=== PATIENT | female | born 1955 | race Caucasian/White ===

== ENCOUNTER 2016-07-02 14:55 | Emergency (ER) | payer BC ==
[~2016-07-02] VITALS: Ht 157.5 cm; Wt 63.6 kg
[~2016-07-02 14:55] MED LIST: ALPARAZOLAM0.5 MG PO; COUMADIN2.5 MG PO; DURAGESIC100 MCG/HR TD; ESTRODIAL; ESTRODIAL PO; FENTANYL 100MCG TD; FENTANYL 50MCG TP; FENTANYL 75MCG TD; LAMICTAL 100MG100 MG PO; LAMOTRIGINE5 MG PO; LASIX20 MG PO; LEVOTHYROXIN0.088 MG PO; LEVOTHYROXINE0.1 MG PO; LEVOXYL0.075 MG PO; LEVOXYL0.088 MG PO; LITHIUM CARBON150 MG PO; LORTAB 5/500 501 TAB PO; MOTRIN 400400 MG/TAB PO; MS CONTIN100 MG PO; MSIR30 MG PO; NORCO 325 MG-51 TAB PO; PEPCID 20MG TAB20 MG PO; PREDNISONE20 MG PO; PROPRANOLOL10 MG PO; REGLAN 10MG10 MG/TAB PO; RITALIN 5MG5 MG/TAB PO; SEROQUEL 2525 MG/TAB PO; SOMA 350MG350 MG/TAB PO; UROCIT; VALIUM 5MG T5 MG/TAB PO; XANAX 1MG1 MG PO; ZITHROMAX 250M250 MG PO; ZOFRAN 4MG T4 MG/TAB PO
[2016-07-02 14:58] VITALS: TEMP 99.8
[2016-07-02] MEDS ORDERED: MS CONTIN 660 MG/TAB PO (15:20)
[2016-07-02] MEDS ORDERED: LEVOXYL0.075 MG PO (15:21)
[2016-07-02] MEDS ORDERED: NORCO 325 MG-51 TAB PO (15:22)
[2016-07-02] MEDS ORDERED: AMITRIPTYLINE H25 M1 PO (15:22)
[2016-07-02] MEDS ORDERED: VALIUM 5MG T5 MG/TAB PO (15:23)
[2016-07-02 15:48] LABS: BASO # 0.1 (0.0-0.2); BASO % 0.3 % (0.0-2.0); EOS # 0.1 (0.0-0.7); EOS % 0.9 % (0-4.0); GRAN # 11.6 (1.4-6.5); GRAN % 80.2 % (42.2-75.2); HEMATOCRIT 42.4 % (37.0-47.0); HEMOGLOBIN 13.4 g/dl (12.5-16.0); LYMPH # 1.5 (1.2-3.4); LYMPH % 10.6 % (20.0-51.0); MEAN CELL VOLUME 92 fl (80.0-100.0); MEAN CORPUSCULAR HEMOGLOBIN 29 pg (27.0-31.0); MEAN CORPUSCULAR HGB CONC 32 g/dl (33.0-37.0); MEAN PLATELET VOLUME 10.2 fl (7.4-10.4); MONO # 1.1 (0.1-0.6); MONO % 7.7 % (1.7-9.3); PLATELET COUNT 363 K/mm3 (130-400); RED BLOOD COUNT 4.62 M/mm3 (4.10-5.30); REDCELL DISTRIBUTION WIDTH-CV 13.6 % (11.5-14.5); WHITE BLOOD COUNT 14.4 K/mm3 (4.8-10.8)
[2016-07-02 15:57] LABS: ADJUSTED CALCIUM 9.8 mg/dL (8.4-10.2); BILIRUBIN,TOTAL 0.6 mg/dL (0.0-1.0); CALCIUM 9.8 mg/dL (8.4-10.2); CREATININE, serum 0.88 mg/dL (0.52-1.25); POTASSIUM 3.6 mmol/L (3.4-5.0); TOTAL PROTEIN 7.3 gm/dL (6.4-8.2)
[2016-07-02 16:12] LABS: PH 5 (5-8); SQUAMOUS EPITHELIAL 0-2 /hpf; URINE APPEARANCE Clear; URINE BACTERIA None Seen /hpf; URINE BILIRUBIN Negative (NEGATIVE); URINE BLOOD Negative (NEGATIVE); URINE COLOR Yellow; URINE GLUCOSE 1+ (NEGATIVE); URINE KETONE Negative (NEGATIVE); URINE RBC 0-2 /hpf; URINE UROBILINOGEN Negative (NEGATIVE); URINE WBC 0-2 /hpf
[2016-07-02 16:25] LABS: AMPHETAMINE URINE NEGATIVE; BARBITURATES URINE NEGATIVE; BENZODIAZEPINES URINE POSITIVE; BUPRENORPHINE URINE NEGATIVE; METHADONE URINE NEGATIVE; OPIATES URINE POSITIVE; OXYCODONE URINE NEGATIVE; PHENCYCLIDINE URINE NEGATIVE; PROPOXYPHENE URINE NEGATIVE; THC CANNABINOIDS URINE NEGATIVE
[2016-07-02 18:08] VITALS: BP 110/61; PULSE 88
== END 2016-07-02 18:35 | disposition home or self-care (01) ==
LOC: COL.ER 14:55
PROVIDERS: Emergency Medicine
DX: T40.2X1A Poisoning by other opioids, accidental (unintentional), initial encounter (principal); T39.1X1A Poisoning by 4-Aminophenol derivatives, accidental (unintentional), initial encounter; T42.8X1A Poisoning by antiparkinsonism drugs and other central muscle-tone depressants, accidental (unintentional), initial encounter; T42.4X1A Poisoning by benzodiazepines, accidental (unintentional), initial encounter; T43.011A Poisoning by tricyclic antidepressants, accidental (unintentional), initial encounter; F11.129 Opioid abuse with intoxication, unspecified; Y92.009 Unspecified place in unspecified non-institutional (private) residence as the place of occurrence of the external cause; G89.29 Other chronic pain; G14 Postpolio syndrome; F41.9 Anxiety disorder, unspecified; F32.9 Major depressive disorder, single episode, unspecified
CPT/HCPCS: J2310; J2550; J2765; J7030

== ENCOUNTER → 2016-10-11 | Outpatient (CLI) | payer BC ==
[~2016-10-11] MED LIST changes: +AMITRIPTYLINE H25 M1 PO; +MS CONTIN 660 MG/TAB PO
== END ==
LOC: BHSO 14:43
DX: F41.1 Generalized anxiety disorder (principal)

== ENCOUNTER → 2017-04-04 | Outpatient (CLI) | payer BC | LOC: MC.RAD 11:17 | DX: Z12.31 Encounter for screening mammogram for malignant neoplasm of breast (principal); Z98.890 Other specified postprocedural states ==

== ENCOUNTER → 2017-09-20 | Outpatient (CLI) | payer BC ==
[~2017-09-20] MED LIST changes: +OXYCONTIN30 MG PO
== END ==
LOC: BHSO 13:42
DX: F06.32 Mood disorder due to known physiological condition with major depressive-like episode (principal)
CPT/HCPCS: G0463

== ENCOUNTER → 2017-10-31 | Outpatient (CLI) | payer BC | LOC: MHCPAIN 13:15 | DX: G89.29 Other chronic pain (principal); M79.2 Neuralgia and neuritis, unspecified; M79.1 Myalgia | CPT/HCPCS: G0463 ==

== ENCOUNTER → 2017-12-15 | Outpatient (CLI) | payer BC | LOC: COL.VAS 13:42 | DX: M79.604 Pain in right leg (principal); M79.89 Other specified soft tissue disorders; R60.0 Localized edema; Z98.890 Other specified postprocedural states ==

== ENCOUNTER 2018-01-30 13:30 | Outpatient (RCR) | payer BC ==
[~2018-01-30 13:30] MED LIST changes: +OXYCONTIN 10MG10 MG PO; -OXYCONTIN30 MG PO
[2018-03-02] MEDS ORDERED: PRILOSEC 20MG20 MG PO (11:33)
[2018-03-02] MEDS ORDERED: VITAMIN D31000 I1 PO (11:34)
== END 2018-03-02 12:28 | disposition home or self-care (01) ==
LOC: WSC 13:30
DX: G14 Postpolio syndrome (principal); M79.2 Neuralgia and neuritis, unspecified; G89.29 Other chronic pain; R26.81 Unsteadiness on feet

== ENCOUNTER → 2018-02-20 | Outpatient (CLI) | payer BC ==
[~2018-02-20] MED LIST changes: -OXYCONTIN 10MG10 MG PO; +OXYCONTIN30 MG PO
== END ==
LOC: COL.PUL 11:05
DX: R06.02 Shortness of breath (principal)

== ENCOUNTER 2018-03-02 10:37 | Day surgery (SDC) | payer BC ==
[~2018-03-02] VITALS: Ht 160 cm; Wt 80.5 kg
[~2018-03-02 10:37] MED LIST changes: +OXYCONTIN 10MG10 MG PO; -OXYCONTIN30 MG PO
[2018-03-02] MEDS ORDERED: PRILOSEC 20MG20 MG PO (11:33)
[2018-03-02] MEDS ORDERED: VITAMIN D31000 I1 PO (11:34)
[2018-03-02 11:44] VITALS: BP 136/86; PULSE 75; TEMP 97.4
[2018-03-02 14:20] VITALS: BP 133/82; PULSE 65; TEMP 98.1
[2018-03-02 14:30] VITALS: BP 125/73; PULSE 62
[2018-03-02 14:45] VITALS: BP 137/89; PULSE 76
== END 2018-03-02 15:03 | disposition home or self-care (01) ==
LOC: SDCO 10:37
DX: K22.2 Esophageal obstruction (principal); K21.9 Gastro-esophageal reflux disease without esophagitis; G89.29 Other chronic pain; F41.9 Anxiety disorder, unspecified; F32.9 Major depressive disorder, single episode, unspecified; M79.7 Fibromyalgia; M19.90 Unspecified osteoarthritis, unspecified site; M94.0 Chondrocostal junction syndrome [Tietze]; E78.00 Pure hypercholesterolemia, unspecified; K58.9 Irritable bowel syndrome, unspecified; Z96.641 Presence of right artificial hip joint; Z90.710 Acquired absence of both cervix and uterus; Z88.1 Allergy status to other antibiotic agents; Z88.8 Allergy status to other drugs, medicaments and biological substances; Z88.7 Allergy status to serum and vaccine; Z85.3 Personal history of malignant neoplasm of breast
CPT/HCPCS: C1726; J2704; J3010; J7030

== ENCOUNTER → 2018-03-09 | Outpatient (CLI) | payer BC ==
[~2018-03-09] MED LIST changes: +PRILOSEC 20MG20 MG PO; +VITAMIN D31000 I1 PO
== END ==
LOC: BHSO 14:54
DX: F41.1 Generalized anxiety disorder (principal)
CPT/HCPCS: G0463

== ENCOUNTER → 2018-04-04 | Outpatient (CLI) | payer BC | LOC: COL.RAD 03-22 13:00 | DX: J98.6 Disorders of diaphragm (principal); R06.02 Shortness of breath; Z86.12 Personal history of poliomyelitis ==

== ENCOUNTER → 2018-04-25 | Outpatient (CLI) | payer BC ==
[~2018-04-25] VITALS: Ht 158.8 cm; Wt 80.1 kg
[~2018-04-25] MED LIST changes: +ADVIL200 MG PO; +FETZIMA20 PO; +TYLENOL 8 HR PO
[2018-04-25 09:22] VITALS: BP 140/90; PULSE 104
== END ==
LOC: LIGHT 03-21 16:30
DX: R73.01 Impaired fasting glucose (principal); E78.5 Hyperlipidemia, unspecified; E03.9 Hypothyroidism, unspecified; E66.9 Obesity, unspecified; Z68.31 Body mass index [BMI] 31.0-31.9, adult; Z71.3 Dietary counseling and surveillance
CPT/HCPCS: G0463

== ENCOUNTER 2018-05-05 09:27 | Emergency (ER) | payer BC ==
[~2018-05-05] VITALS: Ht 160 cm; Wt 79.5 kg
[2018-05-05 09:32] VITALS: TEMP 97.9
[2018-05-05 10:27] LABS: BASO % 0.2 % (0.0-2.0); GRAN # 14.2 (1.4-6.5); HEMATOCRIT 41.2 % (37.0-47.0); HEMOGLOBIN 13.9 g/dl (12.5-16.0); LYMPH # 1.8 (1.2-3.4); LYMPH % 10.3 % (20.0-51.0); MEAN CELL VOLUME 85 fl (80.0-100.0); MEAN CORPUSCULAR HEMOGLOBIN 29 pg (27.0-31.0); MEAN CORPUSCULAR HGB CONC 34 g/dl (33.0-37.0); MEAN PLATELET VOLUME 9.6 fl (7.4-10.4); MONO % 5.6 % (1.7-9.3); PLATELET COUNT 422 K/mm3 (130-400); RED BLOOD COUNT 4.84 M/mm3 (4.10-5.30); REDCELL DISTRIBUTION WIDTH-CV 14.3 % (11.5-14.5)
[2018-05-05 10:37] LABS: ALBUMIN 4.5 gm/dL (3.5-5.0); BILIRUBIN,TOTAL 0.4 mg/dL (0.0-1.0); CALCIUM 10.6 mg/dL (8.4-10.2); CREATININE, serum 0.83 mg/dL (0.52-1.25); POTASSIUM 3.8 mmol/L (3.4-5.0); TOTAL PROTEIN 7.9 gm/dL (6.4-8.2)
[2018-05-05] MEDS ORDERED: NORCO 325 MG-51 TAB PO (11:57)
[2018-05-05] MEDS ORDERED: CLEOCIN HCL300 MG PO (11:57)
[2018-05-05 12:16] VITALS: BP 168/97; PULSE 98
== END 2018-05-05 12:25 | disposition home or self-care (01) ==
LOC: COL.ER 09:27
PROVIDERS: Nurse Practitioner Primary Care
DX: M27.2 Inflammatory conditions of jaws (principal); F41.9 Anxiety disorder, unspecified; E03.9 Hypothyroidism, unspecified; K21.9 Gastro-esophageal reflux disease without esophagitis; G14 Postpolio syndrome; Z79.899 Other long term (current) drug therapy; Z86.718 Personal history of other venous thrombosis and embolism
CPT/HCPCS: J1100; J2270; J2405; Q9967

== ENCOUNTER → 2018-05-31 | Outpatient (CLI) | payer BC ==
[~2018-05-31] MED LIST changes: +CLEOCIN HCL300 MG PO
== END ==
LOC: LIGHT 13:52
DX: R73.01 Impaired fasting glucose (principal); E78.5 Hyperlipidemia, unspecified; E03.9 Hypothyroidism, unspecified; E66.9 Obesity, unspecified; Z68.31 Body mass index [BMI] 31.0-31.9, adult; Z71.3 Dietary counseling and surveillance

== ENCOUNTER → 2018-06-28 | Outpatient (CLI) | payer BC ==
[~2018-06-28] VITALS: Ht 160 cm; Wt 79.8 kg
[~2018-06-28] MED LIST changes: +NUEDEXTA 20 MG-1 CAP PO
[2018-06-28 15:01] VITALS: BP 126/72; PULSE 84
== END ==
LOC: LIGHT
DX: E78.5 Hyperlipidemia, unspecified (principal); R73.01 Impaired fasting glucose; E03.9 Hypothyroidism, unspecified; E66.9 Obesity, unspecified; Z68.31 Body mass index [BMI] 31.0-31.9, adult; Z71.3 Dietary counseling and surveillance
CPT/HCPCS: G0463

== ENCOUNTER → 2018-07-11 | Outpatient (CLI) | payer BC ==
[~2018-07-11] MED LIST changes: +NORCO 325 MG-7.1 TAB PO; +SYNTHROID0.088 MG/T PO
== END ==
LOC: COL.RAD 07-03 13:15
DX: G93.89 Other specified disorders of brain (principal); M54.2 Cervicalgia; H74.8X3 Other specified disorders of middle ear and mastoid, bilateral

== ENCOUNTER → 2018-07-17 | Outpatient (CLI) | payer BC ==
[~2018-07-17] MED LIST changes: -NORCO 325 MG-7.1 TAB PO; -SYNTHROID0.088 MG/T PO
== END ==
LOC: COL.RAD 13:15
DX: M50.31 Other cervical disc degeneration, high cervical region (principal)
CPT/HCPCS: A9585

== ENCOUNTER → 2018-07-24 | Outpatient (CLI) | payer BC ==
[~2018-07-24] VITALS: Ht 160 cm; Wt 79.6 kg
[~2018-07-24] MED LIST changes: +NORCO 325 MG-7.1 TAB PO; +SYNTHROID0.088 MG/T PO
== END ==
LOC: LIGHT 09:48
DX: E78.5 Hyperlipidemia, unspecified (principal); R73.01 Impaired fasting glucose; E03.9 Hypothyroidism, unspecified; E66.9 Obesity, unspecified; Z68.31 Body mass index [BMI] 31.0-31.9, adult; Z71.3 Dietary counseling and surveillance

== ENCOUNTER → 2018-07-26 | Day surgery (SDC) | payer BC ==
[~2018-07-26] VITALS: Ht 160 cm; Wt 81.9 kg
[~2018-07-26] MED LIST changes: +VITAMIN D32000 IU PO
[2018-07-26 07:32] VITALS: BP 116/61; PULSE 92; TEMP 98.7
--- NOTE | 2018-07-26 08:10 | NUR ---
PATIENT STARTED CRYING AND MOANING DURING IV STICK- 2 UNSUCESSFUL STICKS. IV SERVICES CALLED
[2018-07-26 12:55] VITALS: BP 95/56; PULSE 100; TEMP 98.8
--- NOTE | 2018-07-26 12:55 | NUR ---
TO RM 8 PER CART FROM PACU. ALERT ORIENTED X3, TALKING TO STAFF AND FAMILY. RIGHT LEG ELEVATED, ICE OVER KNEE. DENIES PAIN OR DISCOMFORT. DENIES NAUSEA OR VOMITING. RECEIVED CRANBERRY JUICE AND CRACKERS
[2018-07-26 13:10] VITALS: BP 108/67; PULSE 90
--- NOTE | 2018-07-26 13:10 | NUR ---
ATE 100% AND RECEIVED JELLO.
[2018-07-26 13:25] VITALS: BP 110/63; PULSE 96
--- NOTE | 2018-07-26 13:25 | NUR ---
ATE 100% AND TOLERATED WELL. ASKING TO GO HOME.
--- NOTE | 2018-07-26 13:35 | NUR ---
UP AMBULATED TO BATHROOM WITH WALKER. VOIDED AND TOLERATED WELL.
--- NOTE | 2018-07-26 13:50 | NUR ---
RECEIVED DISCHARGE INSTRUCTIONS AND VERBALIZED UNDERSTANDING. STUDENT DISCONTINUED IV AND INT- CATHETER INTACT COVERED WITH COTTON BALL AND COBAN
--- NOTE | 2018-07-26 14:00 | NUR ---
DISCHARGED PER WC BY NURSING STAFF TO PRIVATE CAR IN CARE OF AND MOTHER.
== END ==
LOC: SDCO 06:57
DX: S83.231A Complex tear of medial meniscus, current injury, right knee, initial encounter (principal); Z79.82 Long term (current) use of aspirin; Z88.8 Allergy status to other drugs, medicaments and biological substances; F41.9 Anxiety disorder, unspecified; E78.00 Pure hypercholesterolemia, unspecified; F32.9 Major depressive disorder, single episode, unspecified; Z85.3 Personal history of malignant neoplasm of breast; Z92.3 Personal history of irradiation; J30.2 Other seasonal allergic rhinitis; Z90.49 Acquired absence of other specified parts of digestive tract; Z90.710 Acquired absence of both cervix and uterus; Z82.5 Family history of asthma and other chronic lower respiratory diseases; Z82.61 Family history of arthritis; Z80.9 Family history of malignant neoplasm, unspecified; Z83.3 Family history of diabetes mellitus; M17.11 Unilateral primary osteoarthritis, right knee; G89.29 Other chronic pain; K21.9 Gastro-esophageal reflux disease without esophagitis; K58.9 Irritable bowel syndrome, unspecified; E03.9 Hypothyroidism, unspecified
CPT/HCPCS: J0690; J1100; J1170; J1885; J2405; J2550; J2704; J3010; J7120

== ENCOUNTER → 2018-08-02 | Outpatient (CLI) | payer BC ==
[~2018-08-02] VITALS: Ht 160 cm; Wt 78.7 kg
[2018-08-02 15:12] VITALS: BP 134/82; PULSE 96
== END ==
LOC: LIGHT 07:44
DX: E78.5 Hyperlipidemia, unspecified (principal); R73.09 Other abnormal glucose; E03.9 Hypothyroidism, unspecified; E66.9 Obesity, unspecified; Z68.30 Body mass index [BMI] 30.0-30.9, adult; Z71.3 Dietary counseling and surveillance
CPT/HCPCS: G0463

== ENCOUNTER → 2018-11-13 | Outpatient (CLI) | payer MEDICARE, BC | LOC: BHSO 08:35 | DX: F41.1 Generalized anxiety disorder (principal) | CPT/HCPCS: G0463 ==

== ENCOUNTER → 2020-02-18 | Outpatient (CLI) | payer MEDICARE, BC ==
[~2020-02-18] VITALS: Ht 158.8 cm; Wt 84.6 kg
[~2020-02-18] MED LIST changes: +MOBIC 7.5MG7.5 MG PO; +PHENTERMINE15 MG PO; -SYNTHROID0.088 MG/T PO; +SYNTHROID0.1 MG/TAB PO
[2020-02-18 15:11] VITALS: BP 120/76; PULSE 80
== END ==
LOC: LIGHT 10:33
DX: E66.8 Other obesity (principal); Z68.33 Body mass index [BMI] 33.0-33.9, adult; R73.01 Impaired fasting glucose; E78.5 Hyperlipidemia, unspecified
CPT/HCPCS: G0463

== ENCOUNTER → 2020-09-25 | Outpatient (CLI) | payer MEDICARE, BC | LOC: MC.RAD 12:53 | DX: Z12.31 Encounter for screening mammogram for malignant neoplasm of breast (principal); N64.59 Other signs and symptoms in breast ==

== ENCOUNTER 2021-04-20 12:02 | Emergency (ER) | payer MEDICARE, BC ==
[~2021-04-20] VITALS: Ht 157.5 cm; Wt 70.5 kg
[2021-04-20 13:34] VITALS: BP 114/76; PULSE 92; TEMP 97.5
[2021-04-20] MEDS ORDERED: NORCO 325 MG-51 TAB PO ×2 (15:35)
== END 2021-04-20 16:14 | disposition home or self-care (01) ==
LOC: COL.ER 12:02
DX: S89.91XA Unspecified injury of right lower leg, initial encounter (principal); X50.9XXA Other and unspecified overexertion or strenuous movements or postures, initial encounter
CPT/HCPCS: 31289; L1830; L1846

== ENCOUNTER → 2021-05-06 | Outpatient (CLI) | payer MEDICARE, BC | LOC: MC.RAD 12:00 | DX: N62 Hypertrophy of breast (principal); N63.10 Unspecified lump in the right breast, unspecified quadrant ==